=== PATIENT | female | born 2000 | race Caucasian/White ===

== ENCOUNTER 2020-08-12 17:52 | Emergency (ER) | payer OTHER ==
[~2020-08-12] VITALS: Ht 162.6 cm; Wt 44.0 kg
[2020-08-12] MEDS ORDERED: AUGMENTIN 875-1 EACH PO (18:08)
[2020-08-12 18:48] LABS: INFLUENZA A ANTIGEN Negative (Negative); INFLUENZA B ANTIGEN Negative (Negative)
[2020-08-12] MEDS ORDERED: APAP W/CODEINE1 TA2 PO (19:48)
[2020-08-12] MEDS ORDERED: PHENERGAN 25 MG25 M1 PO (19:48)
[2020-08-12] MEDS ORDERED: CLEOCIN HCL300 MG PO (19:48)
[2020-08-12] MEDS ORDERED: MEDROLDOSEPACK PO (19:48)
[2020-08-12 19:59] VITALS: BP 102/60
== END 2020-08-12 20:00 | disposition home or self-care (01) ==
LOC: M.ERS 17:52
PROVIDERS: Nurse Practitioner Family
DX: J03.90 Acute tonsillitis, unspecified (principal); Z20.828 Contact with and (suspected) exposure to other viral communicable diseases; Z88.8 Allergy status to other drugs, medicaments and biological substances; Z87.440 Personal history of urinary (tract) infections; Z87.01 Personal history of pneumonia (recurrent)